=== PATIENT | male | born 1945 | race Caucasian/White ===

== ENCOUNTER 2016-12-03 09:41 | Emergency (ER) | payer MEDICARE, MEDICAID ==
--- NOTE | 2016-12-03 10:03 | Emergency Department Record ---
History of Present Illness - General Chief complaint: Pain Stated complaint: SHOULDER PAIN Time Seen by Provider: 12/03/16 10:02 Source: Patient Mode of Arrival: Ambulatory Limitations: No limitations - History of Present Illness Initial comments: The patient is here due to L shoulder pain for 2-3 months. The patient states he fractured his Clavicle 6 months ago and has had pain since but for the last few months it is worse over his shoulder blade. The pain seems to increase at night. He denies any new pain or trauma or fall. He also denies any CP, SOB, or HONORIO but does state he coughed about a month ago really hard and noticed pain over his L upper ribs. The pain in his L shoulderblade area seems really deep and is worse at times with ROM. MD Complaint: Extremity pain Onset/Timin -: Month(s) Location: Left, Shoulder History of Same: Yes Radiation: Proximal Severity scale (1-10): 6 Quality: Aching, Sharp Consistency: Constant, Intermittent - Related Data Home Medications Medication Instructions Recorded Confirmed Last Taken Areds Eye Drops 1 drop EACH EYE DAILY 12/22/15 12/03/16 1 Day Ago Multivitamin [Multi-Vitamin Daily] 1 each PO DAILY 12/22/15 12/03/16 1 Day Ago [place]-3 Fatty Acids/Fish Oil [Fish 1 each PO DAILY 12/22/15 12/03/16 1 Day Ago Oil 1,000 mg Softgel] Omeprazole [Omeprazole] 1 tab PO DAILY 12/22/15 12/03/16 1 Day Ago Simvastatin [Simvastatin] 1 tab PO QHS 12/22/15 12/03/16 1 Day Ago Previous Rx's Medication Instructions Recorded Hydrocodone/Acetaminophen [[place] 1 each PO QID #20 tablet 12/03/16 5-325 Tablet] Allergies Allergy/AdvReac Type Severity Reaction Status Date / Time No Known Drug Allergies Allergy Verified 12/03/16 09:56 Travel Screening - Travel/Exposure Within Last 30 Days Have you traveled within the last 30 days?: No - Travel/Exposure Within Last Year Have you traveled outside the [place] 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; affects balance; speech; - GI Hx GI Disorders: Yes Hx Diverticulitis: Yes Hx Reflux: Yes Hx of Polyps: Yes Comment:: hx constipation; resolved - Hx Genitourinary Disorders: Yes Hx Prostate Problems: Yes Hx UTI: Yes - ENDOCRINE Hx Endocrine Disorders: No - MUSCULOSKELETAL Hx Musculoskeletal Disorders: No - PSYCH Hx Psych Problems: No - HEMATOLOGY/ONCOLOGY Hx Hematology/Oncology Disorders: No Family Medical History Any Significant Family History?: Yes Family Hx Comment (NOT TO BE USED IN PLACE OF ITEMS BELOW): hereditary neuromuscular disease; OPCA Physical Exam - General General Appearance: Alert, Oriented x3, Cooperative, No acute distress - Head Head exam: Atraumatic, Normocephalic, Normal inspection - Eye Eye exam: Normal appearance, PERRL - ENT Throat exam: Normal inspection - Neck Neck exam: Normal inspection, Full ROM. negative: Tenderness - Respiratory Respiratory exam: Normal lung sounds bilaterally. negative: Respiratory distress - Cardiovascular Cardiovascular Exam: Regular rate, Normal rhythm, Normal heart sounds - GI/Abdominal GI/Abdominal exam: Soft, Normal bowel sounds. negative: Tenderness - Extremities Extremities exam: Normal inspection, Full ROM (There is mild pain with ROM.), Tenderness (There is mild tenderness over the L scapula area and deep with palpation in the axilla. No masses are swelling is appreciated.). negative: Joint swelling Course Vital Signs 12/03/16 09:43 Temperature 98.0 F Pulse Rate 74 Respiratory 18 Rate Blood Pressure 136/86 Pulse Ox 97 - Reevaluation(s) Reevaluation #1: I did discuss the CT results with the patient and family. I also did make contact with Dr. Florence who is the patient's PCP to apprise him of the findings. The patient is to F/U with Dr. Florence and also the thoracic surgery doctor's at [facility] [place] for further eval. 12/03/16 13:24 12/03/16 13:28 12/03/16 13:29 12/03/16 16:02 Medical Decision Making - Data Complexity MDM Data: Labs Ordered and/or Reviewed, X-Ray Ordered and/or Reviewed, EKG Ordered and/or Reviewed - Lab Data Result diagrams: 12/03/16 10:25 12/03/16 10:25 - EKG Data -: EKG Interpreted by Me EKG: No Acute Changes, Normal EKG - Radiology Data Radiology results: Report reviewed (Chest CT: Mass in the L lung apex possibly coming off the 3rd rib. Esophageal thickening below the AP window.) Disposition Disposition: Discharge Clinical Impression: Chest wall pain Disposition: Home, Self-Care Condition: (1) Good Instructions: Thoracic Pain (ED) Additional Instructions: Please see Dr. Florence and also Dr. Carlisle for further evaluation. Take Lytle for pain. Please return to the ER for any increased pain, fever, trouble breathing or vomiting. Prescriptions: Hydrocodone/Acetaminophen [L[place] 5-325 Tablet] 1 each PO QID #20 tablet Referrals: SILVER CORREA [] - Forms: Patient Portal Access Time of Disposition: 13:32
[2016-12-03 10:36] LABS: BASO % 0.7 % (0-6); EOS % 1.2 % (0-6); GRAN % 70.7 % (47-80); HEMATOCRIT 45.5 % (42.0-52.0); HEMOGLOBIN 15.3 gm/dl (14.0-18.0); LYMPH % 16.3 % (16-45); MEAN CELL VOLUME 85.2 fl (81-97); MEAN CORPUSCULAR HEMOGLOBIN 28.7 pg (27-33); MEAN CORPUSCULAR HGB CONC 33.6 g/dl (32-36); MEAN PLATELET VOLUME 9.6 fl (7.4-10.4); MONO % 11.1 % (0-9); PLATELET COUNT 256 K/uL (130-400); RED BLOOD COUNT 5.34 M/uL (4.40-5.70); RED CELL DISTRIBUTION WIDTH 14.8 % (11.5-14.5); WHITE BLOOD COUNT W/O DIFF 6.8 K/uL (4.2-12.2)
[2016-12-03 10:48] LABS: ANION GAP 10.3 (7-16); BLOOD UREA NITROGEN 14 mg/dL (9-20); CARBON DIOXIDE 26.7 mmol/L (22-30); CREATINE PHOSPHOKINASE 64 U/L (55-170); CREATININE 0.9 mg/dL (0.66-1.25); EST GLOMERULAR FILTRATION RATE > 60 ml/min; GLUCOSE,RANDOM 105 mg/dL (70-110)
[2016-12-03 11:00] LABS: CKMB 1.2 ug/L (0-6); TROPONIN I < 0.012 ng/mL (0.00-0.034)
[2016-12-03] MEDS ORDERED: 0.9 % SODIUM CHLORIDE 1,000 ML BAG IV ONE (11:20)
--- NOTE | 2016-12-04 12:25 | RADIOLOGY REPORT ---
DATE: 12/03/2016. EXAM: AP VIEW OF THE CHEST AND THREE VIEWS OF THE LEFT RIBS. HISTORY: Shoulder pain. TECHNIQUE: AP portable view of the chest and three views of the left ribs are provided along with a comparison CT scan of the chest dated 05/07/2016. FINDINGS: AP portable view of the chest demonstrates the cardiac silhouette to be within normal limits. Tortuosity of the thoracic aorta is noted. Chronic interstitial changes are identified bilaterally. There is a soft tissue density identified within the left lung apex which is new with respect to the prior CT scan. Multiple views of the left ribs demonstrate no radiographic evidence of a fracture or dislocation of the left sided ribs. IMPRESSION: 1. NO RADIOGRAPHIC EVIDENCE OF AN ACUTE PROCESS INVOLVING THE LEFT RIBS. 2. NEW SOFT TISSUE DENSITIES IDENTIFIED AT THE LEFT LUNG APEX DISCUSSED ABOVE. A CT SCAN OF THE CHEST CAN BE OBTAINED FOR FURTHER EVALUATION. JOB NUMBER: [id number] MTDD
--- NOTE | 2016-12-04 12:31 | RADIOLOGY REPORT ---
DATE: 12/03/2016. EXAM: THREE VIEWS OF THE LEFT SHOULDER. HISTORY: The patient has left shoulder pain. The patient has a history of a fall today. TECHNIQUE: Three views of the left shoulder are provided along with a comparison CT scan of the chest dated 05/07/2016. FINDINGS: There is no radiographic evidence of a fracture or dislocation of the left shoulder. Degenerative changes of the left acromioclavicular joint are noted. There is a new soft tissue density identified at the left lung apex. I would recommend a CT scan of the chest for further evaluation. IMPRESSION: 1. NO RADIOGRAPHIC EVIDENCE OF AN ACUTE PROCESS INVOLVING THE LEFT SHOULDER. 2. A NEW SOFT TISSUE DENSITY IS NOTED AT THE LEFT LUNG APEX DISCUSSED ABOVE. I WOULD RECOMMEND A CT SCAN OF THE CHEST FOR FURTHER EVALUATION. JOB NUMBER: [id number] MTDD
--- NOTE | 2016-12-04 12:32 | CT SCAN REPORT ---
DATE: 12/03/2016. EXAM: CT SCAN OF THE CHEST WITH CONTRAST. HISTORY: The patient has left shoulder pain. TECHNIQUE: Serial axial CT scan of the chest was performed at 3.75 mm intervals from the thoracic inlet to the dome of the diaphragm following the intravenous administration of 100 mL of Omnipaque 300. COMPARISON: Comparison CT scan of the chest dated 05/07/2016 is provided. FINDINGS: The thoracic inlet demonstrates a heterogeneous nodule within the right thyroid lobe. If there is further clinical concern, then an ultrasound examination of the thyroid gland can be obtained for further evaluation. Prominent but subcentimeter lymph nodes are identified within the right paratracheal space adjacent to the thyroid gland. Neoplastic etiology cannot be excluded. The lung windows demonstrate a 4.6 mm nonspecific nodule within the left lateral lower lobe. Other punctate 2.0 mm densities are identified within the right lower lobe. No focal consolidation or pleural effusions are identified. No pneumothorax is noted. Within the posterosuperior chest wall, there is a 3.4 cm x 7.9 cm soft tissue mass invading the chest wall. This is possibly originating from the left third rib. Neoplastic etiology is suspected. The heart size and contour is within normal limits. Mild ectasia of the thoracic aorta is noted. Several subcentimeter lymph nodes are identified within the mediastinum. Neoplastic involvement is suspected. No significant axillary or hilar lymphadenopathy is noted. There is focal asymmetric thickening of the proximal esophageal wall at the level of the aortopulmonary window. Neoplastic involvement cannot be excluded. Endoscopic evaluation can be obtained for further evaluation. Axial images through the upper abdomen demonstrate the visualized liver, spleen , pancreas, and bilateral adrenal glands to be unremarkable. A small hiatal hernia is suspected. Bone windows again demonstrate destruction of the left posterolateral third rib. IMPRESSION: 1. EXPANSILE MASS IDENTIFIED AT THE POSTEROLATERAL ASPECT OF THE LEFT THIRD RIB WHICH IS CREATING MASS EFFECT UPON THE SUPERIOR ASPECT OF LEFT UPPER LOBE. NEOPLASTIC ETIOLOGY IS SUSPECTED. 2. SEVERAL SUBCENTIMETER LYMPH NODES ARE NOTED WITHIN THE MEDIASTINUM WHICH ARE SUSPECTED TO BE NEOPLASTICALLY INVOLVED. 3. THERE IS THICKENING OF THE ESOPHAGEAL WALL PROXIMALLY AT THE LEVEL OF THE AORTOPULMONARY WINDOW. ENDOSCOPIC EVALUATION FOR NEOPLASTIC PROCESS IS RECOMMENDED. JOB NUMBER: [id number] MTDD
== END 2016-12-03 13:44 | disposition home or self-care (01) ==
LOC: ER 09:41
DX: R07.89 Other chest pain (principal); M25.512 Pain in left shoulder; R91.8 Other nonspecific abnormal finding of lung field
CPT/HCPCS: 99284 ×2; 82550; 85025; 82553; 84484; 80048; 71101; 73030; 71260; 93005; 93010; Q9967

== ENCOUNTER 2016-12-05 08:30 | Emergency (ER) | payer MEDICARE, MEDICAID ==
--- NOTE | 2016-12-05 08:43 | Emergency Department Record ---
History of Present Illness - General Chief complaint: Extremity Problem Stated complaint: LEFT SHOULDER PAIN Time Seen by Provider: 12/05/16 08:41 Source: Patient Mode of Arrival: Wheelchair Limitations: No limitations - History of Present Illness Initial comments: The patient is here due to extreme L arm pain. He was just moving his L arm this AM and felt the acute onset of severe pain and spasms. He denies any trauma or fall. The patient was just in the ER 2 days ago for L shoulder pain and was diagnosed with a L lung tumor. He has an appointment with Dr. Carlisle tomorrow. Complaint: Extremity pain Onset/Timin -: Hour(s) Location: Left, Shoulder History of Same: Yes Severity scale (1-10): 9 Quality: Sharp Consistency: Constant Improves with: Nothing Worsens with: Exertion, Weight bearing Associated Symptoms: Denies other symptoms - Related Data Home Medications Medication Instructions Recorded Confirmed Last Taken Areds Eye Drops 1 drop EACH EYE DAILY 12/22/15 12/05/16 1 Day Ago Multivitamin [Multi-Vitamin Daily] 1 each PO DAILY 12/22/15 12/05/16 1 Day Ago [place]-3 Fatty Acids/Fish Oil [Fish 1 each PO DAILY 12/22/15 12/05/16 1 Day Ago Oil 1,000 mg Softgel] Omeprazole [Omeprazole] 1 tab PO DAILY 12/22/15 12/05/16 1 Day Ago Simvastatin [Simvastatin] 1 tab PO QHS 12/22/15 12/05/16 1 Day Ago Previous Rx's Medication Instructions Recorded Hydrocodone/Acetaminophen [[place] 1 each PO QID #20 tablet 12/03/16 5-325 Tablet] Allergies Allergy/AdvReac Type Severity Reaction Status Date / Time No Known Drug Allergies Allergy Verified 12/03/16 09:56 Travel Screening - Travel/Exposure Within Last 30 Days Have you traveled within the last 30 days?: No Review of Systems Constitutional: Denies: Chills, Fever Eyes: Denies: Eye discharge ENT: Denies: Congestion Respiratory: Denies: Cough, Dyspnea Past Medical History - SOCIAL HISTORY Smoking Status: Former smoker Alcohol Use: None Drug Use: None - RESPIRATORY Hx Respiratory Disorders: No - CARDIOVASCULAR Hx Cardio Disorders: Yes Comment:: high cholesterol - NEURO Hx Neuro Disorders: Yes Hx Speech Problem: Yes 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; affects balance; speech; - GI Hx GI Disorders: Yes Hx Diverticulitis: Yes Hx Reflux: Yes Hx of Polyps: Yes Comment:: hx constipation; resolved - Hx Genitourinary Disorders: Yes Hx Prostate Problems: Yes Hx UTI: Yes - ENDOCRINE Hx Endocrine Disorders: No - MUSCULOSKELETAL Hx Musculoskeletal Disorders: No - PSYCH Hx Psych Problems: No - HEMATOLOGY/ONCOLOGY Hx Hematology/Oncology Disorders: No Family Medical History Any Significant Family History?: Yes Family Hx Comment (NOT TO BE USED IN PLACE OF ITEMS BELOW): hereditary neuromuscular disease; OPCA Physical Exam - General General Appearance: Alert, Oriented x3, Cooperative, Mild distress - Head Head exam: Atraumatic, Normocephalic, Normal inspection - Eye Eye exam: Normal appearance, PERRL - Neck Neck exam: Normal inspection, Full ROM. negative: Tenderness - Respiratory Respiratory exam: Normal lung sounds bilaterally. negative: Respiratory distress - Cardiovascular Cardiovascular Exam: Regular rate, Normal rhythm, Normal heart sounds - Extremities Extremities exam: Tenderness (There is tenderness and swelling to the L mid humerus. The L arm is NVI with normal pulses.). negative: Normal inspection, Full ROM Course Vital Signs 12/05/16 08:36 Temperature 97.2 F L Pulse Rate 75 Respiratory 20 Rate Blood Pressure 139/99 Pulse Ox 95 - Reevaluation(s) Reevaluation #1: The patient is doing better with the pain medicines. I did discuss the [place] [facility] [place] agree to [place] the patient in transfer. He will consult Dr. Carlisle and an Orthopedic surgeon [place] [facility] [place]'s multiple issues. 12/05/16 09:22 Reevaluation #2: Contact also was made with the [place]tho Resident [place] [facility] [place]'s condition. 12/05/16 11:05 Medical Decision Making - Data Complexity MDM Data: X-Ray Ordered and/or Reviewed - Lab Data Result diagrams: 12/05/16 08:50 12/05/16 08:50 - Radiology Data Radiology results: Report reviewed (L humerus: proximal shaft fx with mild displacement and angulation.) Disposition Disposition: Transfer Clinical Impression: Humerus fracture Disposition: Acute Care Hospital Transfer [place] [facility] [place] For Transfer: Humerus fx Accepting Physician: Sindy. Time Discussed w/Accepting Physician: 09:26 Condition: (2) Stable Forms: Patient Portal Access Time of Disposition: 09:26
[2016-12-05] MEDS ORDERED: HYDROMORPHONE HCL 1 MG/ML CPJ IVP ONE ×2 (08:46→09:07)
[2016-12-05] MEDS ORDERED: ONDANSETRON HCL IV 4 MG/2 ML VIAL IVP ONE (08:46)
[2016-12-05 09:02] LABS: HEMATOCRIT 47.3 % (42.0-52.0); HEMOGLOBIN 15.9 gm/dl (14.0-18.0); MEAN CELL VOLUME 85.5 fl (81-97); MEAN CORPUSCULAR HEMOGLOBIN 28.8 pg (27-33); MEAN CORPUSCULAR HGB CONC 33.6 g/dl (32-36); MEAN PLATELET VOLUME 9.5 fl (7.4-10.4); PLATELET COUNT 234 K/uL (130-400); RED BLOOD COUNT 5.53 M/uL (4.40-5.70); WHITE BLOOD COUNT W/O DIFF 8.8 K/uL (4.2-12.2)
[2016-12-05 09:14] LABS: BLOOD UREA NITROGEN 14 mg/dL (9-20); CREATININE 0.9 mg/dL (0.66-1.25); EST GLOMERULAR FILTRATION RATE > 60 ml/min; GLUCOSE,RANDOM 120 mg/dL (70-110)
--- NOTE | 2016-12-10 09:24 | RADIOLOGY REPORT ---
EXAM: LEFT HUMERUS HISTORY: PATIENT WAS LIFTING HIS ARM AND SUDDENLY IT SNAPPED. TECHNIQUE: Two views of the left humerus were provided along with the comparison x-ray of the left ribs dated 12/03/16. FINDINGS: There is a spiral fracture of the mid left humeral diaphysis with approximately 14 mm lateral displacement of the distal fracture fragment. There is mild to moderate valgus angulation of the distal fracture fragment. No obvious underlying pathologic lytic lesion is identified, however, given the neoplastic process within the left lung apex, underlying metastatic lesion cannot be entirely excluded. IMPRESSION: SPIRAL FRACTURE OF THE MID LEFT HUMERAL DIAPHYSIS IS NOTED DESCRIBED ABOVE. UNDERLYING PATHOLOGIC LESION CANNOT BE ENTIRELY EXCLUDED. JOB NUMBER: [id number] MTDD
== END 2016-12-05 10:00 | disposition short-term general hospital (02) ==
LOC: ER 08:30
DX: S42.302A Unspecified fracture of shaft of humerus, left arm, initial encounter for closed fracture (principal); D49.1 Neoplasm of unspecified behavior of respiratory system; X58.XXXA Exposure to other specified factors, initial encounter; G23.8 Other specified degenerative diseases of basal ganglia
CPT/HCPCS: 99285 ×2; 96374; 96375; 80048; 85027; 73060; J2405; J1170